=== PATIENT | female | born 1950 | race Caucasian/White ===

== ENCOUNTER 2017-03-02 23:12 | Emergency (ER) | payer OTHER ==
[~2017-03-02] VITALS: Ht 165.1 cm; Wt 81.2 kg
[~2017-03-02 23:12] MED LIST: ANTIVERT25 M1 PO; CIPRO500 MG PO; DURICEF 500 MG CAPSULE PO; FLAGYL500MG PO; GLIPIZIDE5 MG; GLIPIZIDE5 MG PO; GLUCOPHAGE XR500 MG PO; GLUCOTROL5 MG/BOTTL; HYZAAR 100-121 UDTAB PO; INTESTINEX1 CA1 PO; JARDIANCE; LANTUS100 U/ML SQ; LIPITOR20 MG PO; OXYC1TAB9 PO; TOPROL XL25 M1 PO; TOPROL XL25 MG PO; XYLOCAINE-MP10 MG/ML IM; ZANTAC150 MG PO; ZESTRIL5 MG; ZESTRIL5 MG PO
[2017-03-03] MEDS ORDERED: PEPCID40 MG PO (04:44)
[2017-03-03] MEDS ORDERED: ZOFRAN4 MG PO (04:44)
[2017-03-03] MEDS ORDERED: MECLIZINE HCL25 MG PO ×2 (04:45→04:46)
== END 2017-03-03 04:51 ==
LOC: ER 23:12
DX: R42 Dizziness and giddiness (principal)

== ENCOUNTER → 2017-03-27 | Emergency (ER) | payer OTHER ==
[~2017-03-27] VITALS: Ht 167.6 cm; Wt 80.7 kg
[~2017-03-27] MED LIST changes: +MECLIZINE HCL25 MG PO; +PEPCID40 MG PO; +TESSALON PERLE100 M1 PO; +TUSSI PRES-B L120 M1 PO; +ZOFRAN4 MG PO
== END | disposition home or self-care (01) ==
LOC: ER 13:18
DX: B34.9 Viral infection, unspecified (principal); J11.1 Influenza due to unidentified influenza virus with other respiratory manifestations

== ENCOUNTER 2017-05-18 08:00 | Outpatient (CLI) | payer OTHER | END 2017-05-18 08:21 | disposition home or self-care (01) | LOC: NUCLEAR 08:00 | DX: I25.10 Atherosclerotic heart disease of native coronary artery without angina pectoris (principal) ==

== ENCOUNTER 2017-06-13 06:30 | Outpatient (CLI) | payer OTHER | END 2017-06-13 06:48 | disposition home or self-care (01) | LOC: LAB 06:30 | DX: D64.89 Other specified anemias (principal); N39.0 Urinary tract infection, site not specified; R10.84 Generalized abdominal pain; E03.8 Other specified hypothyroidism; R80.8 Other proteinuria; E11.9 Type 2 diabetes mellitus without complications; R73.09 Other abnormal glucose; E78.2 Mixed hyperlipidemia; I11.9 Hypertensive heart disease without heart failure ==

== ENCOUNTER 2017-07-14 16:23 | Emergency (ER) | payer OTHER ==
[~2017-07-14] VITALS: Ht 167.6 cm; Wt 82.6 kg
[2017-07-14] MEDS ORDERED: ASPIR 8181 MG PO (16:37)
== END 2017-07-14 21:10 | disposition home or self-care (01) ==
LOC: ER 16:23 → CPU-OBS 17:35 → ER 21:10
DX: I25.10 Atherosclerotic heart disease of native coronary artery without angina pectoris (principal); R07.89 Other chest pain

== ENCOUNTER 2017-10-14 11:12 | Outpatient (CLI) | payer OTHER ==
[~2017-10-14 11:12] MED LIST changes: +ASPIR 8181 MG PO
[2017-10-21] MEDS ORDERED: METFORMIN HCL1000 MG (12:22)
[2017-10-21] MEDS ORDERED: JARDIANCE25 MG (12:24)
[2017-10-21] MEDS ORDERED: LANTUS SOL100 UNIT/1 (12:25)
[2017-10-21] MEDS ORDERED: PLAVIX75 MG (12:25)
== END 2017-10-14 11:15 | disposition home or self-care (01) ==
LOC: LAB 11:12
DX: I11.9 Hypertensive heart disease without heart failure (principal); E11.9 Type 2 diabetes mellitus without complications; E78.2 Mixed hyperlipidemia; E03.8 Other specified hypothyroidism

== ENCOUNTER → 2017-10-21 | Emergency (ER) | payer OTHER ==
[~2017-10-21] VITALS: Ht 165.1 cm; Wt 80.7 kg
[~2017-10-21] MED LIST changes: +JARDIANCE25 MG; +LANTUS SOL100 UNIT/1; +METFORMIN HCL1000 MG; +PLAVIX75 MG
== END | disposition home or self-care (01) ==
LOC: ER 12:01
DX: K57.30 Diverticulosis of large intestine without perforation or abscess without bleeding (principal); N39.0 Urinary tract infection, site not specified; B96.29 Other Escherichia coli [E. coli] as the cause of diseases classified elsewhere

== ENCOUNTER 2017-11-12 16:36 | Outpatient (CLI) | payer OTHER | END 2017-11-12 16:51 | disposition home or self-care (01) | LOC: LAB 16:36 | DX: N30.00 Acute cystitis without hematuria (principal) ==

== ENCOUNTER 2017-11-18 07:46 | Outpatient (CLI) | payer OTHER | END 2017-11-18 07:50 | disposition home or self-care (01) | LOC: LAB 07:46 | DX: E78.2 Mixed hyperlipidemia (principal); E11.8 Type 2 diabetes mellitus with unspecified complications; I11.9 Hypertensive heart disease without heart failure; D64.89 Other specified anemias; N39.0 Urinary tract infection, site not specified; R10.84 Generalized abdominal pain; E03.8 Other specified hypothyroidism; E78.4 Other hyperlipidemia; R80.8 Other proteinuria; E11.9 Type 2 diabetes mellitus without complications; R73.09 Other abnormal glucose ==

== ENCOUNTER → 2018-03-20 06:47 | Outpatient (CLI) | payer OTHER | END | disposition home or self-care (01) | LOC: LAB 06:47 | DX: E11.65 Type 2 diabetes mellitus with hyperglycemia (principal); E78.00 Pure hypercholesterolemia, unspecified ==

== ENCOUNTER 2018-04-21 07:32 | Outpatient (CLI) | payer OTHER | END 2018-04-21 07:43 | disposition home or self-care (01) | LOC: LAB 07:32 | DX: E03.8 Other specified hypothyroidism (principal); E78.2 Mixed hyperlipidemia; I11.9 Hypertensive heart disease without heart failure; E55.9 Vitamin D deficiency, unspecified; E56.8 Deficiency of other vitamins ==

== ENCOUNTER 2018-06-18 11:59 | Emergency (ER) | payer OTHER ==
[~2018-06-18] VITALS: Ht 162.6 cm; Wt 72.6 kg
== END 2018-06-18 16:08 | disposition home or self-care (01) ==
LOC: ER 11:59
DX: J40 Bronchitis, not specified as acute or chronic (principal); B34.9 Viral infection, unspecified; J11.1 Influenza due to unidentified influenza virus with other respiratory manifestations

== ENCOUNTER 2018-06-27 19:15 | Emergency (ER) | payer OTHER ==
[~2018-06-27] VITALS: Ht 167.6 cm; Wt 84.4 kg
== END 2018-06-27 22:29 | disposition home or self-care (01) ==
LOC: ER 19:15
DX: R42 Dizziness and giddiness (principal); J32.0 Chronic maxillary sinusitis

== ENCOUNTER 2018-08-25 08:18 | Outpatient (CLI) | payer OTHER | END 2018-08-25 10:33 | disposition home or self-care (01) | LOC: LAB 08:18 | DX: D50.8 Other iron deficiency anemias (principal); D03.8 Melanoma in situ of other sites; E78.2 Mixed hyperlipidemia; I11.9 Hypertensive heart disease without heart failure; E56.8 Deficiency of other vitamins; N39.0 Urinary tract infection, site not specified; Z12.11 Encounter for screening for malignant neoplasm of colon; R19.5 Other fecal abnormalities; E55.9 Vitamin D deficiency, unspecified; N19 Unspecified kidney failure; E11.9 Type 2 diabetes mellitus without complications; R80.8 Other proteinuria; C18.8 Malignant neoplasm of overlapping sites of colon; K92.1 Melena; B96.1 Klebsiella pneumoniae [K. pneumoniae] as the cause of diseases classified elsewhere ==

== ENCOUNTER 2018-10-16 16:24 | Outpatient (CLI) | payer OTHER | END 2018-10-16 16:28 | disposition home or self-care (01) | LOC: LAB 16:24 | DX: N39.0 Urinary tract infection, site not specified (principal) ==

== ENCOUNTER → 2018-10-29 16:36 | Outpatient (CLI) | payer OTHER | END | disposition home or self-care (01) | LOC: RAD 16:36 | DX: M25.562 Pain in left knee (principal); M25.561 Pain in right knee ==

== ENCOUNTER 2018-12-19 09:31 | Outpatient (CLI) | payer OTHER | END 2018-12-19 09:36 | disposition home or self-care (01) | LOC: MAMO-SONO 09:31 | DX: Z12.31 Encounter for screening mammogram for malignant neoplasm of breast (principal); Z87.898 Personal history of other specified conditions; C50.919 Malignant neoplasm of unspecified site of unspecified female breast; N63.10 Unspecified lump in the right breast, unspecified quadrant; N63.20 Unspecified lump in the left breast, unspecified quadrant; N64.4 Mastodynia; N60.12 Diffuse cystic mastopathy of left breast; N60.11 Diffuse cystic mastopathy of right breast ==

== ENCOUNTER 2018-12-19 13:23 | Outpatient (CLI) | payer OTHER | END 2018-12-19 14:00 | disposition home or self-care (01) | LOC: NUCLEAR 13:23 | DX: M81.0 Age-related osteoporosis without current pathological fracture (principal) ==

== ENCOUNTER → 2019-01-31 06:54 | Outpatient (CLI) | payer OTHER | END | disposition home or self-care (01) | LOC: LAB 06:54 | DX: N30.00 Acute cystitis without hematuria (principal) ==

== ENCOUNTER 2019-02-09 15:40 | Outpatient (CLI) | payer OTHER | END 2019-02-09 18:00 | disposition home or self-care (01) | LOC: LAB 15:40 | DX: N39.0 Urinary tract infection, site not specified (principal); B99.8 Other infectious disease ==

== ENCOUNTER 2019-02-12 13:38 | Outpatient (CLI) | payer OTHER | END 2019-02-12 14:04 | disposition home or self-care (01) | LOC: LAB 13:38 | DX: N30.00 Acute cystitis without hematuria (principal) ==

== ENCOUNTER 2019-03-27 17:20 | Outpatient (CLI) | payer OTHER | END 2019-03-27 17:34 | disposition home or self-care (01) | LOC: LAB 17:20 | DX: J11.1 Influenza due to unidentified influenza virus with other respiratory manifestations (principal); R53.83 Other fatigue; B96.0 Mycoplasma pneumoniae [M. pneumoniae] as the cause of diseases classified elsewhere ==

== ENCOUNTER 2019-03-29 18:45 | Emergency (ER) | payer OTHER ==
[~2019-03-29] VITALS: Ht 165.1 cm; Wt 68.0 kg
== END 2019-03-29 22:14 | disposition home or self-care (01) ==
LOC: ER 18:45
DX: J45.998 Other asthma (principal)

== ENCOUNTER 2019-04-30 07:37 | Emergency (ER) | payer OTHER ==
[~2019-04-30] VITALS: Ht 165.1 cm; Wt 81.6 kg
== END 2019-04-30 13:53 | disposition home or self-care (01) ==
LOC: ER 07:37
DX: R10.13 Epigastric pain (principal)

== ENCOUNTER 2019-05-04 17:54 | Outpatient (CLI) | payer OTHER | END 2019-05-04 17:58 | disposition home or self-care (01) | LOC: LAB 17:54 | DX: N39.0 Urinary tract infection, site not specified (principal); B96.1 Klebsiella pneumoniae [K. pneumoniae] as the cause of diseases classified elsewhere ==

== ENCOUNTER 2019-07-25 08:06 | Outpatient (CLI) | payer OTHER | END 2019-07-25 08:12 | disposition home or self-care (01) | LOC: LAB 08:06 | PROVIDERS: ATTEND Urology | DX: N30.00 Acute cystitis without hematuria (principal); Z72.89 Other problems related to lifestyle; B96.89 Other specified bacterial agents as the cause of diseases classified elsewhere ==

== ENCOUNTER 2019-08-03 07:58 | Outpatient (CLI) | payer OTHER | END 2019-08-03 08:01 | disposition home or self-care (01) | LOC: LAB 07:58 | PROVIDERS: ATTEND Urology | DX: E11.9 Type 2 diabetes mellitus without complications (principal) ==

== ENCOUNTER 2019-08-05 10:11 | Outpatient (CLI) | payer OTHER | END 2019-08-05 10:13 | disposition home or self-care (01) | LOC: LAB 10:11 | PROVIDERS: ATTEND Urology | DX: E11.9 Type 2 diabetes mellitus without complications (principal) ==

== ENCOUNTER 2019-08-24 16:28 | Outpatient (CLI) | payer OTHER | END 2019-08-24 16:34 | disposition home or self-care (01) | LOC: LAB 16:28 | PROVIDERS: ATTEND Urology | DX: E11.9 Type 2 diabetes mellitus without complications (principal); B96.29 Other Escherichia coli [E. coli] as the cause of diseases classified elsewhere; N30.00 Acute cystitis without hematuria ==

== ENCOUNTER → 2019-09-24 14:17 | Outpatient (CLI) | payer OTHER | END | disposition home or self-care (01) | LOC: CERTIFICAD 14:17 → LAB 14:17 | PROVIDERS: ATTEND General Practice | DX: Z11.1 Encounter for screening for respiratory tuberculosis (principal) ==

== ENCOUNTER 2019-10-02 13:14 | Outpatient (CLI) | payer OTHER ==
[~2019-10-02] VITALS: Ht 165.1 cm; Wt 87.5 kg
== END 2019-10-02 18:48 | disposition home or self-care (01) ==
LOC: OFIC 805 13:14
PROVIDERS: ATTEND Otolaryngology
DX: H90.41 Sensorineural hearing loss, unilateral, right ear, with unrestricted hearing on the contralateral side (principal)

== ENCOUNTER 2019-10-22 11:42 | Outpatient (CLI) | payer OTHER | END 2019-10-22 14:11 | disposition home or self-care (01) | LOC: SONOGRAMA 11:42 | PROVIDERS: ATTEND Obstetrics & Gynecology Gynecology | DX: N20.0 Calculus of kidney (principal) ==

== ENCOUNTER → 2019-11-15 06:54 | Outpatient (CLI) | payer OTHER | END | disposition home or self-care (01) | LOC: LAB 06:54 | PROVIDERS: ATTEND Internal Medicine Endocrinology, Diabetes & Metabolism | DX: E11.65 Type 2 diabetes mellitus with hyperglycemia (principal); E78.89 Other lipoprotein metabolism disorders; E06.3 Autoimmune thyroiditis ==

== ENCOUNTER 2019-11-19 10:00 | Outpatient (CLI) | payer OTHER | END 2019-11-19 15:43 | disposition home or self-care (01) | LOC: PPH VACUNA 10:00 | DX: Z23 Encounter for immunization (principal) | CPT/HCPCS: 90688; G0008 ==

== ENCOUNTER 2019-12-14 08:29 | Outpatient (CLI) | payer OTHER | END 2019-12-14 08:33 | disposition home or self-care (01) | LOC: LAB 08:29 | PROVIDERS: ATTEND Internal Medicine Geriatric Medicine | DX: N39.0 Urinary tract infection, site not specified (principal); B96.29 Other Escherichia coli [E. coli] as the cause of diseases classified elsewhere; D50.8 Other iron deficiency anemias; E03.8 Other specified hypothyroidism; E78.2 Mixed hyperlipidemia; I11.9 Hypertensive heart disease without heart failure; E56.8 Deficiency of other vitamins; Z12.11 Encounter for screening for malignant neoplasm of colon; E55.9 Vitamin D deficiency, unspecified; N19 Unspecified kidney failure; E11.9 Type 2 diabetes mellitus without complications; R80.8 Other proteinuria; C18.0 Malignant neoplasm of cecum; K92.1 Melena ==

== ENCOUNTER 2020-02-11 16:43 | Outpatient (CLI) | payer OTHER | END 2020-02-11 16:44 | disposition home or self-care (01) | LOC: PPH VACUNA 16:43 | DX: Z23 Encounter for immunization (principal) ==

== ENCOUNTER → 2020-02-11 | Outpatient (CLI) | payer OTHER | END | disposition home or self-care (01) | LOC: MAMO-SONO 12:32 | PROVIDERS: ATTEND Internal Medicine Geriatric Medicine | DX: R92.0 Mammographic microcalcification found on diagnostic imaging of breast (principal); N64.59 Other signs and symptoms in breast; Z12.31 Encounter for screening mammogram for malignant neoplasm of breast; C50.919 Malignant neoplasm of unspecified site of unspecified female breast; N64.4 Mastodynia; N60.12 Diffuse cystic mastopathy of left breast; N60.11 Diffuse cystic mastopathy of right breast ==

== ENCOUNTER 2020-03-03 03:00 | Outpatient (CLI) | payer OTHER | END 2020-03-03 03:01 | disposition home or self-care (01) | LOC: PPH VACUNA 03:00 | PROVIDERS: ATTEND Emergency Medicine Pediatric Emergency Medicine | DX: Z23 Encounter for immunization (principal) ==

== ENCOUNTER → 2020-03-14 07:52 | Outpatient (CLI) | payer OTHER | END | disposition home or self-care (01) | LOC: LAB 07:52 | PROVIDERS: ATTEND Internal Medicine Geriatric Medicine | DX: D50.8 Other iron deficiency anemias (principal); E03.8 Other specified hypothyroidism; E78.2 Mixed hyperlipidemia; I11.9 Hypertensive heart disease without heart failure; E56.8 Deficiency of other vitamins; N39.0 Urinary tract infection, site not specified; Z12.11 Encounter for screening for malignant neoplasm of colon; E55.9 Vitamin D deficiency, unspecified; N19 Unspecified kidney failure; E11.9 Type 2 diabetes mellitus without complications; R80.8 Other proteinuria; C18.0 Malignant neoplasm of cecum; K92.1 Melena ==

== ENCOUNTER 2020-04-10 17:41 | Emergency (ER) | payer OTHER ==
[~2020-04-10] VITALS: Ht 165.1 cm; Wt 83.9 kg
[2020-04-10] MEDS ORDERED: MOTION SICKNESS25 M2 PO (19:05)
== END 2020-04-10 19:18 | disposition home or self-care (01) ==
LOC: ER 17:41 → MEDI 04-12 10:35
DX: R42 Dizziness and giddiness (principal)

== ENCOUNTER 2020-04-11 23:38 | Inpatient (IN) | payer OTHER ==
[~2020-04-11] VITALS: Ht 165.1 cm; Wt 86.2 kg
[~2020-04-11 23:38] MED LIST changes: +MOTION SICKNESS25 M2 PO
--- NOTE | 2020-04-12 00:02 | NUR ---
PACIENTE REFIERE 7 EPISODIOS DE VOMITOS Y MAREOS. SE ESTIMAN VITALESY SE COLOCA EN AREA DE OBSERVACION.
--- NOTE | 2020-04-12 00:26 | NUR ---
SE ORIENTA AL PACIENTE SOBRE EL TX. SE EXTRAEN MUESTRAS DE ABDIRAHMAN BAJO MEDIDAS ASEPTICAS SE ROTULAN Y ENVIAN AL LABORATORIO. SE CANALIZA Y ADMINISTRAN MEDICAMENTOS WANDA ORDEN MEDICA. SE ENTREGA FRASCO DE UA Y SE ORIENTA A COLECTAR LA MUESTRA.
--- NOTE | 2020-04-12 08:09 | NUR ---
PACIENTE ALERTA Y ORIENTADA EN JOHN PAUL ELDA ESFERAS, REFIERE MAREOS, PRESENTA BUEN PATRON RESPIRATORIO Y LO DE DOLOR. CANALIZADA EN MANO LT, AREA LO DE S/S DE FLEBITIS E INFILTRACION, RECIBIENDO 0.9% NSS A 150 ML/HR. MR A RAMSEY ADMINISTRA BENADRYL 25 MG IV Y COLECTA MUESTRAS DE ABDIRAHMAN PARA CBC, CMP Y TROPONINA. PENDIENTE EVALUACION DE MEDICINA INTERNA CON DRA REYNA POR VERTIGO.
[2020-04-16] MEDS ORDERED: BENADRYL ALLERG25 MG PO (13:40)
[2020-04-16] MEDS ORDERED: METFORMIN HCL1000 MG PO (13:40)
[2020-04-16] MEDS ORDERED: LIPITOR20 MG PO (13:40)
[2020-04-16] MEDS ORDERED: ONDANSETRON ODT4 MG PO (13:40)
[2020-04-16] MEDS ORDERED: TRANSDERM-SCOP1 EACH TD (13:40)
[2020-04-16] MEDS ORDERED: MOTION SICKNESS25 M2 PO (13:40)
[2020-04-16] MEDS ORDERED: TRULICITY1.5 MG/0.5 SUBCUTANEO (13:40)
[2020-04-16] MEDS ORDERED: ZESTRIL5 MG PO (13:40)
[2020-04-16] MEDS ORDERED: TOPROL XL25 MG PO (13:40)
== END 2020-04-16 15:19 | disposition home or self-care (01) | DRG 149 ==
LOC: ER 23:38 → EMR PED 23:39 → ER 23:39 → MEDI 04-12 11:12 → SURH 04-12 11:12
PROVIDERS: ADMIT Internal Medicine Geriatric Medicine; ATTEND Internal Medicine Geriatric Medicine
PROC: B24BYZZ Ultrasonography of Heart with Aorta using Other Contrast (ICD-10-PCS; principal; 2020-04-13)
PROC: BW38Y0Z Magnetic Resonance Imaging (MRI) of Head using Other Contrast, Unenhanced and Enhanced (ICD-10-PCS; 2020-04-13)
DX: H81.4 Vertigo of central origin (principal); E86.0 Dehydration; R11.2 Nausea with vomiting, unspecified; E11.9 Type 2 diabetes mellitus without complications; I25.10 Atherosclerotic heart disease of native coronary artery without angina pectoris; I11.9 Hypertensive heart disease without heart failure; Z20.822 Contact with and (suspected) exposure to COVID-19
CPT/HCPCS: 70545

== ENCOUNTER 2020-04-29 12:31 | Emergency (ER) | payer OTHER ==
[~2020-04-29] VITALS: Ht 160 cm; Wt 84.8 kg
[~2020-04-29 12:31] MED LIST changes: +BENADRYL ALLERG25 MG PO; +METFORMIN HCL1000 MG PO; +ONDANSETRON ODT4 MG PO; +TRANSDERM-SCOP1 EACH TD; +TRULICITY1.5 MG/0.5 SUBCUTANEO
[2020-04-29] MEDS ORDERED: MECLIZINE HCL25 MG (13:06)
[2020-04-29] MEDS ORDERED: MACROBID 100 M100 MG PO (16:29)
== END 2020-04-29 16:42 | disposition home or self-care (01) ==
LOC: ER 12:31
DX: R42 Dizziness and giddiness (principal); N39.0 Urinary tract infection, site not specified; B96.29 Other Escherichia coli [E. coli] as the cause of diseases classified elsewhere

== ENCOUNTER 2020-06-13 08:02 | Outpatient (CLI) | payer OTHER ==
[~2020-06-13 08:02] MED LIST changes: +MACROBID 100 M100 MG PO; +MECLIZINE HCL25 MG
== END 2020-06-13 08:19 | disposition home or self-care (01) ==
LOC: LAB 08:02
PROVIDERS: ATTEND Internal Medicine Geriatric Medicine
DX: D50.8 Other iron deficiency anemias (principal); E03.8 Other specified hypothyroidism; E78.2 Mixed hyperlipidemia; I11.9 Hypertensive heart disease without heart failure; E56.8 Deficiency of other vitamins; N39.0 Urinary tract infection, site not specified; Z12.11 Encounter for screening for malignant neoplasm of colon; E55.9 Vitamin D deficiency, unspecified; N19 Unspecified kidney failure; E11.9 Type 2 diabetes mellitus without complications; R80.8 Other proteinuria; C18.0 Malignant neoplasm of cecum; K92.1 Melena

== ENCOUNTER → 2020-09-05 08:03 | Outpatient (CLI) | payer OTHER ==
[~2020-09-05 08:03] MED LIST changes: +CRUTCHES; +DICLOFENAC POTA50 MG PO; +ULTRAM50 MG PO
== END | disposition home or self-care (01) ==
LOC: LAB 08:03
PROVIDERS: ATTEND Internal Medicine Geriatric Medicine
DX: D50.8 Other iron deficiency anemias (principal); E03.8 Other specified hypothyroidism; E78.2 Mixed hyperlipidemia; I11.9 Hypertensive heart disease without heart failure; E56.8 Deficiency of other vitamins; N39.0 Urinary tract infection, site not specified; Z12.11 Encounter for screening for malignant neoplasm of colon; E55.9 Vitamin D deficiency, unspecified; N19 Unspecified kidney failure; E11.9 Type 2 diabetes mellitus without complications; R80.8 Other proteinuria; C18.0 Malignant neoplasm of cecum; K92.1 Melena

== ENCOUNTER 2020-10-01 12:55 | Emergency (ER) | payer OTHER ==
[~2020-10-01] VITALS: Ht 165.1 cm; Wt 83.9 kg
[~2020-10-01 12:55] MED LIST changes: -CRUTCHES; -DICLOFENAC POTA50 MG PO; -ULTRAM50 MG PO
[2020-10-01] MEDS ORDERED: CRUTCHES (15:12)
[2020-10-01] MEDS ORDERED: ULTRAM50 MG PO (15:12)
[2020-10-01] MEDS ORDERED: DICLOFENAC POTA50 MG PO (15:12)
== END 2020-10-01 15:23 | disposition home or self-care (01) ==
LOC: ER 12:55
DX: S93.492A Sprain of other ligament of left ankle, initial encounter (principal); R60.0 Localized edema; W01.0XXA Fall on same level from slipping, tripping and stumbling without subsequent striking against object, initial encounter; Y93.01 Activity, walking, marching and hiking; Y92.018 Other place in single-family (private) house as the place of occurrence of the external cause; Y99.8 Other external cause status

== ENCOUNTER 2020-11-07 04:18 | Outpatient (CLI) | payer OTHER ==
[~2020-11-07 04:18] MED LIST changes: +CRUTCHES; +DICLOFENAC POTA50 MG PO; +ULTRAM50 MG PO
== END 2020-11-07 15:00 | disposition home or self-care (01) ==
LOC: LAB 04:18
PROVIDERS: ATTEND Internal Medicine Geriatric Medicine
DX: E03.8 Other specified hypothyroidism (principal); D50.8 Other iron deficiency anemias; E78.2 Mixed hyperlipidemia; I11.9 Hypertensive heart disease without heart failure; E56.8 Deficiency of other vitamins; N39.0 Urinary tract infection, site not specified; Z12.11 Encounter for screening for malignant neoplasm of colon; R19.5 Other fecal abnormalities; E55.9 Vitamin D deficiency, unspecified; E11.9 Type 2 diabetes mellitus without complications

== ENCOUNTER 2020-11-23 08:00 | Outpatient (CLI) | payer OTHER | END 2020-11-23 08:30 | disposition home or self-care (01) | LOC: PPH VACUNA 08:00 | PROVIDERS: ATTEND Emergency Medicine Pediatric Emergency Medicine | DX: Z23 Encounter for immunization (principal) ==

== ENCOUNTER → 2020-12-21 07:33 | Outpatient (CLI) | payer OTHER | END | disposition home or self-care (01) | LOC: LAB 07:33 | PROVIDERS: ATTEND Internal Medicine | DX: N39.0 Urinary tract infection, site not specified (principal); B96.29 Other Escherichia coli [E. coli] as the cause of diseases classified elsewhere; I10 Essential (primary) hypertension; E11.9 Type 2 diabetes mellitus without complications; E55.9 Vitamin D deficiency, unspecified; N18.2 Chronic kidney disease, stage 2 (mild); R80.8 Other proteinuria ==

== ENCOUNTER 2021-02-21 03:43 | Emergency (ER) | payer OTHER ==
[~2021-02-21] VITALS: Ht 165.1 cm; Wt 85.7 kg
== END 2021-02-21 05:43 | disposition home or self-care (01) ==
LOC: ER 03:43
DX: R10.11 Right upper quadrant pain (principal)

== ENCOUNTER 2021-02-24 08:01 | Outpatient (CLI) | payer OTHER | END 2021-02-24 08:12 | disposition home or self-care (01) | LOC: SONOGRAMA 08:01 | PROVIDERS: ATTEND General Practice | DX: R10.11 Right upper quadrant pain (principal) ==

== ENCOUNTER 2021-03-06 08:13 | Outpatient (CLI) | payer OTHER | END 2021-03-06 15:00 | disposition home or self-care (01) | LOC: LAB 08:13 | DX: E78.89 Other lipoprotein metabolism disorders (principal); E11.65 Type 2 diabetes mellitus with hyperglycemia ==

== ENCOUNTER 2021-04-09 09:16 | Outpatient (CLI) | payer OTHER ==
[~2021-04-09 09:16] MED LIST changes: +GLUCOPHAGE 1000; +INTESTINEX680 MG PO; +LEVAQUIN500 MG; +PRINIVIL5 MG
[2021-04-22] MEDS ORDERED: ZESTRIL5 MG PO (11:14)
[2021-04-22] MEDS ORDERED: METFORMIN HCL1000 MG (11:14)
[2021-04-23] MEDS ORDERED: METFORMIN HCL1000 M3 (11:01)
[2021-04-23] MEDS ORDERED: FAMOTIDINE20 MG (11:01)
[2021-04-23] MEDS ORDERED: TRULICITY1.5 MG/0.5 (11:02)
[2021-04-23] MEDS ORDERED: METOPROLOL SUCC25 MG (11:02)
[2021-04-23] MEDS ORDERED: ATORVASTATIN CA20 MG (11:02)
[2021-04-23] MEDS ORDERED: VITAMIN C500 M1 (11:02)
[2021-04-23] MEDS ORDERED: VITAMIN D350 MC3 (11:02)
[2021-04-23] MEDS ORDERED: ST. JOSEPH ASPI81 M2 (11:02)
[2021-04-27] MEDS ORDERED: INTESTINEX680 M1 PO (09:23)
[2021-04-27] MEDS ORDERED: AMOX-CLAV 875-1 EACH PO (09:23)
== END 2021-04-09 09:40 | disposition home or self-care (01) ==
LOC: ASH CLINIC 09:16
PROVIDERS: ATTEND General Practice
DX: U07.1 COVID-19 (principal); Z23 Encounter for immunization

== ENCOUNTER 2021-11-17 08:00 | Outpatient (CLI) | payer OTHER ==
[~2021-11-17 08:00] MED LIST changes: +AMOX-CLAV 875-1 EACH PO; +ATORVASTATIN CA20 MG; +FAMOTIDINE20 MG; +INTESTINEX680 M1 PO; +METFORMIN HCL1000 M3; +METOPROLOL SUCC25 MG; +ST. JOSEPH ASPI81 M2; +TRULICITY1.5 MG/0.5; +VITAMIN C500 M1; +VITAMIN D350 MC3
== END 2021-11-17 08:05 | disposition home or self-care (01) ==
LOC: PPH VACUNA 08:00
PROVIDERS: ATTEND Emergency Medicine Pediatric Emergency Medicine
DX: Z23 Encounter for immunization (principal)
CPT/HCPCS: 90686; G0008

== ENCOUNTER 2021-12-21 14:39 | Outpatient (CLI) | payer OTHER | END 2021-12-21 14:49 | disposition home or self-care (01) | LOC: RAD 14:39 | DX: M99.01 Segmental and somatic dysfunction of cervical region (principal); M99.02 Segmental and somatic dysfunction of thoracic region; M99.03 Segmental and somatic dysfunction of lumbar region; M99.05 Segmental and somatic dysfunction of pelvic region ==

== ENCOUNTER → 2022-02-05 07:46 | Outpatient (CLI) | payer OTHER | END | disposition home or self-care (01) | LOC: LAB 07:46 | PROVIDERS: ATTEND Internal Medicine | DX: N39.0 Urinary tract infection, site not specified (principal); D64.9 Anemia, unspecified; R10.9 Unspecified abdominal pain; E03.9 Hypothyroidism, unspecified; E78.5 Hyperlipidemia, unspecified; E11.9 Type 2 diabetes mellitus without complications; I10 Essential (primary) hypertension ==

== ENCOUNTER → 2022-04-01 09:10 | Outpatient (CLI) | payer OTHER | END | disposition home or self-care (01) | LOC: LAB 09:10 | PROVIDERS: ATTEND Internal Medicine Endocrinology, Diabetes & Metabolism | DX: E11.65 Type 2 diabetes mellitus with hyperglycemia (principal); E78.00 Pure hypercholesterolemia, unspecified ==

== ENCOUNTER 2022-04-30 08:21 | Outpatient (CLI) | payer OTHER | END 2022-04-30 08:22 | disposition home or self-care (01) | LOC: LAB 08:21 | PROVIDERS: ATTEND Internal Medicine | DX: D51.9 Vitamin B12 deficiency anemia, unspecified (principal); K57.90 Diverticulosis of intestine, part unspecified, without perforation or abscess without bleeding; E66.9 Obesity, unspecified; N18.2 Chronic kidney disease, stage 2 (mild); E11.9 Type 2 diabetes mellitus without complications; N39.0 Urinary tract infection, site not specified; E55.9 Vitamin D deficiency, unspecified; E78.9 Disorder of lipoprotein metabolism, unspecified; I10 Essential (primary) hypertension; I25.10 Atherosclerotic heart disease of native coronary artery without angina pectoris; I11.9 Hypertensive heart disease without heart failure; N39.41 Urge incontinence; M65.30 Trigger finger, unspecified finger ==

== ENCOUNTER 2022-06-20 19:29 | Emergency (ER) | payer OTHER ==
[~2022-06-20] VITALS: Ht 165.1 cm; Wt 77.1 kg
== END 2022-06-20 21:09 | disposition home or self-care (01) ==
LOC: ER 19:29
DX: M54.50 Low back pain, unspecified (principal); E11.9 Type 2 diabetes mellitus without complications; Z79.4 Long term (current) use of insulin; I10 Essential (primary) hypertension; Z88.8 Allergy status to other drugs, medicaments and biological substances

== ENCOUNTER 2022-06-22 17:03 | Emergency (ER) | payer OTHER ==
[~2022-06-22] VITALS: Ht 160 cm; Wt 61.2 kg
== END 2022-06-22 22:57 | disposition home or self-care (01) ==
LOC: ER 17:03
DX: M54.31 Sciatica, right side (principal); E11.9 Type 2 diabetes mellitus without complications; Z79.4 Long term (current) use of insulin; Z79.84 Long term (current) use of oral hypoglycemic drugs; I10 Essential (primary) hypertension; Z88.8 Allergy status to other drugs, medicaments and biological substances

== ENCOUNTER 2022-06-26 13:57 | Inpatient (IN) | payer OTHER ==
[~2022-06-26] VITALS: Ht 152.4 cm; Wt 83.9 kg
[2022-06-27] MEDS ORDERED: DULOXETINE HCL30 MG (15:40)
[2022-06-27] MEDS ORDERED: SYNJARDY XR 121 EACH (15:44)
[2022-06-27] MEDS ORDERED: GABAPENTIN300 M2 (15:44)
[2022-06-27] MEDS ORDERED: REFRESH OPTIVE10 ML (15:44)
[2022-06-27] MEDS ORDERED: ZANAFLEX2 MG (15:44)
[2022-06-29] MEDS ORDERED: DOCUSATE SODIU100 MG PO (07:49)
[2022-06-29] MEDS ORDERED: HUMALOG100 UNIT/1 SUBCUTANEO (07:53)
[2022-06-29] MEDS ORDERED: LIDODERM1 EACH TOP (07:53)
[2022-06-29] MEDS ORDERED: PROTONIX40 MG PO (07:55)
[2022-06-29] MEDS ORDERED: DEXAMETHASONE4 MG PO (07:55)
[2022-06-29] MEDS ORDERED: PEPCID AC20 MG PO (07:56)
[2022-06-29] MEDS ORDERED: TRAMADOL HCL50 MG PO (08:01)
== END 2022-06-29 09:36 | disposition home or self-care (01) | DRG 552 ==
LOC: ER 13:57 → MEDJ 06-27 09:24
PROVIDERS: ADMIT Internal Medicine; ATTEND Internal Medicine
DX: M51.16 Intervertebral disc disorders with radiculopathy, lumbar region (principal); M48.061 Spinal stenosis, lumbar region without neurogenic claudication; I11.9 Hypertensive heart disease without heart failure; E11.9 Type 2 diabetes mellitus without complications; Z79.4 Long term (current) use of insulin

== ENCOUNTER 2022-12-02 08:22 | Outpatient (CLI) | payer OTHER ==
[~2022-12-02 08:22] MED LIST changes: +DEXAMETHASONE4 MG PO; +DOCUSATE SODIU100 MG PO; +DULOXETINE HCL30 MG; +GABAPENTIN300 M2; +HUMALOG100 UNIT/1 SUBCUTANEO; +LIDODERM1 EACH TOP; +PEPCID AC20 MG PO; +PROTONIX40 MG PO; +REFRESH OPTIVE10 ML; +SYNJARDY XR 121 EACH; +TRAMADOL HCL50 MG PO; +ZANAFLEX2 MG
[2022-12-02 09:29] LABS: PH,URINE 5.5 (5.0-8.0); URINE APPEARANCE Clear; URINE BILIRRUBIN Negative (NEGATIVE); URINE BLOOD Small; URINE COLOR Yellow; URINE LEUKOCYTE Negative; URINE NITRATE Negative; URINE PROTEIN Negative (NEGATIVE); URINE UROBILINOGEN 0.2 E.U./dl
[2022-12-02 09:32] LABS: URINE BACTERIA 16.3 uL (0.0-1933); URINE EPITHELIAL CELLS 4.4 uL (0.0-38.8); URINE RBC 12.7 uL (0.0-20.8); URINE WBC 34.9 uL (0.0-23.2)
[2022-12-02 09:37] LABS: URINE GLUCOSE >=1000 MG/DL (NEGATIVE)
[2022-12-02 09:44] LABS: HEMATOCRIT 41.1 % (36.0-45.00); HEMOGLOBIN 13.8 g/dL (12.0-15.00); MEAN CELL VOLUME 89.9 fL (80.00-100.00); MEAN CORPUSCULAR HEMOGLOBIN 30.1 pg (27.00-32.0); MEAN CORPUSCULAR HGB CONC 33.4 g/dl (32.0-36.0); PLATELET COUNT 340 K/uL (150-450); RED BLOOD COUNT 4.58 M/uL (4.00-6.00); RED CELL DISTRIBUTION WIDTH 14.3 % (11.5-14.5)
[2022-12-02 10:07] LABS: ALBUMIN 3.9 gm/dL (3.4-5.0); BILIRUBIN TOTAL 0.39 mg/dL (0.3-1.2); CALCIUM 9.1 mg/dL (8.5-10.1); CREATININE SERUM 1.04 mg/dL (0.55-1.02); GFR 51.8; GLOBULINA 3.2 G/DL (2.4-3.5); POTASSIUM 4.28 mEq/L (3.5-5.1); TOTAL PROTEIN 7.1 gm/dL (6.4-8.2)
[2022-12-02 10:16] LABS: CHOL HDL RATIO 2.5 (0-5.0); CHOLESTEROL 133 mg/dL (0-200); FREE TRIODOTIRONINE 2.36 pg/ml (2.18-3.98); HDL 54 mg/dl (40-60); LDL 57 mg/dl (0-130); T4 TOTAL 8.91 UG/DL (4.8-13.9); TRIGLYCERIDES 110 mg/dL (0-150); VLDL 22 (0-39)
[2022-12-02 10:20] LABS: C-REACTIVE PROTEIN < 0.29 MG/DL (0.00-0.29)
[2022-12-03 09:11] LABS: VITAMIN D 1 25 28.5 pg/mL (24.8-81.5)
== END 2022-12-02 08:31 | disposition home or self-care (01) ==
LOC: LAB 08:22
PROVIDERS: ATTEND Internal Medicine
DX: M54.50 Low back pain, unspecified (principal); D51.9 Vitamin B12 deficiency anemia, unspecified; K57.90 Diverticulosis of intestine, part unspecified, without perforation or abscess without bleeding; E66.9 Obesity, unspecified; N18.2 Chronic kidney disease, stage 2 (mild); E11.9 Type 2 diabetes mellitus without complications; N39.0 Urinary tract infection, site not specified; E55.9 Vitamin D deficiency, unspecified; E78.9 Disorder of lipoprotein metabolism, unspecified; I25.10 Atherosclerotic heart disease of native coronary artery without angina pectoris; I11.9 Hypertensive heart disease without heart failure; N39.41 Urge incontinence; E03.9 Hypothyroidism, unspecified

== ENCOUNTER 2022-12-02 09:15 | Outpatient (CLI) | payer OTHER | END 2022-12-02 09:55 | disposition home or self-care (01) | LOC: MAMO-SONO 09:15 | PROVIDERS: ATTEND Internal Medicine | DX: Z12.31 Encounter for screening mammogram for malignant neoplasm of breast (principal); Z12.39 Encounter for other screening for malignant neoplasm of breast; E04.8 Other specified nontoxic goiter ==

== ENCOUNTER 2022-12-14 02:45 | Outpatient (CLI) | payer OTHER | END 2022-12-14 02:55 | disposition home or self-care (01) | LOC: PPH VACUNA 02:45 | PROVIDERS: ATTEND Emergency Medicine Pediatric Emergency Medicine | DX: Z23 Encounter for immunization (principal) | CPT/HCPCS: 90686; G0008 ==

== ENCOUNTER 2023-02-21 09:03 | Outpatient (CLI) | payer OTHER | END 2023-02-21 09:10 | disposition home or self-care (01) | LOC: RAD 09:03 | DX: M43.26 Fusion of spine, lumbar region (principal); M54.10 Radiculopathy, site unspecified | CPT/HCPCS: 72148 ==

== ENCOUNTER 2023-02-22 13:21 | Emergency (ER) | payer OTHER ==
[~2023-02-22] VITALS: Ht 165.1 cm; Wt 81.6 kg
[2023-02-22 15:12] LABS: HEMOGLOBIN 13.1 g/dL (12.0-15.00); MEAN CELL VOLUME 90.9 fL (80.00-100.00); MEAN CORPUSCULAR HEMOGLOBIN 30.6 pg (27.00-32.0); MEAN CORPUSCULAR HGB CONC 33.6 g/dl (32.0-36.0); PLATELET COUNT 344 K/uL (150-450); RED BLOOD COUNT 4.29 M/uL (4.00-6.00)
[2023-02-22 15:42] LABS: CALCIUM 9.2 mg/dL (8.5-10.1); CREATININE SERUM 0.99 mg/dL (0.55-1.02); GFR 54.83; POTASSIUM 4.54 mEq/L (3.5-5.1)
== END 2023-02-22 18:26 | disposition home or self-care (01) ==
LOC: ER 13:22
PROVIDERS: General Practice
DX: M48.061 Spinal stenosis, lumbar region without neurogenic claudication (principal); M54.9 Dorsalgia, unspecified; Z88.8 Allergy status to other drugs, medicaments and biological substances
CPT/HCPCS: 36415; 96372; 99284; J1885; J2405; J3301

== ENCOUNTER 2023-09-19 16:37 | Outpatient (CLI) | payer OTHER ==
[~2023-09-19 16:37] MED LIST changes: +GLUCOPHAGE XR500 MG; +GLUCOTROL10 MG; +HYZAAR 100-121 UDTAB; +LIPITOR20 MG; +TOPROL XL25 MG
[2023-09-19 16:57] LABS: URINE APPEARANCE Clear; URINE BILIRRUBIN Negative (NEGATIVE); URINE BLOOD Small; URINE COLOR Yellow; URINE LEUKOCYTE Negative; URINE NITRATE Negative; URINE PROTEIN Negative (NEGATIVE); URINE UROBILINOGEN 0.2 E.U./dl
[2023-09-19 16:58] LABS: URINE EPITHELIAL CELLS 4.6 uL (0.0-38.8); URINE RBC 7.1 uL (0.0-20.8); URINE WBC 3.6 uL (0.0-23.2)
[2023-09-19 17:05] LABS: URINE BACTERIA 3.7 uL (0.0-1933); URINE GLUCOSE 250 MG/DL (NEGATIVE)
== END 2023-09-19 16:47 | disposition home or self-care (01) ==
LOC: LAB 16:37
DX: N39.0 Urinary tract infection, site not specified (principal)

== ENCOUNTER 2023-11-13 07:17 | Outpatient (CLI) | payer OTHER ==
[2023-11-13 07:49] LABS: HEMATOCRIT 37.2 % (36.0-45.00); HEMOGLOBIN 12.5 g/dL (12.0-15.00); MEAN CELL VOLUME 88.2 fL (80.00-100.00); MEAN CORPUSCULAR HEMOGLOBIN 29.7 pg (27.00-32.0); MEAN CORPUSCULAR HGB CONC 33.7 g/dl (32.0-36.0); PLATELET COUNT 371 K/uL (150-450); RED BLOOD COUNT 4.22 M/uL (4.00-6.00); RED CELL DISTRIBUTION WIDTH 15.2 % (11.5-14.5)
[2023-11-13 08:10] LABS: PH,URINE 5.5 (5.0-8.0); URINE APPEARANCE Clear; URINE BILIRRUBIN Negative (NEGATIVE); URINE BLOOD NHT; URINE COLOR Yellow; URINE KETONE Negative (NEGATIVE); URINE LEUKOCYTE Negative; URINE NITRATE Negative; URINE PROTEIN Negative (NEGATIVE); URINE UROBILINOGEN 0.2 E.U./dl
[2023-11-13 08:13] LABS: URINE BACTERIA 45.3 uL (0.0-1933); URINE EPITHELIAL CELLS 22.2 uL (0.0-38.8); URINE RBC 12.5 uL (0.0-20.8); URINE WBC 30.9 uL (0.0-23.2)
[2023-11-13 08:34] LABS: URINE CAST 0.15 uL (0.0-1.40); URINE GLUCOSE >=1000 MG/DL (NEGATIVE)
[2023-11-13 09:25] LABS: ALBUMIN 3.8 gm/dL (3.4-5.0); ALKALINE PHOSPHATASE 75 U/L (50-136); ALT/SGPT 20 U/L (12-78); ANION GAP 14 (10.0-20.0); AST/SGOT 10 U/L (15-37); BILIRUBIN TOTAL 0.28 mg/dL (0.3-1.2); BLOOD UREA NITROGEN 17 mg/dL (7-18); BUN CREA RATIO 17 (7.0-25.0); CALCIUM 9.1 mg/dL (8.5-10.1); CARBON DIOXIDE 29 mEq/L (21-32); CHLORIDE 107 mmol/L (98-107); CHOL HDL RATIO 2.2 (0-5.0); CHOLESTEROL 119 mg/dL (0-200); CREATININE SERUM 0.98 mg/dL (0.55-1.02); FREE TRIODOTIRONINE 2.03 pg/ml (2.18-3.98); GFR 55.32; GLOBULINA 3.4 G/DL (2.4-3.5); GLUCOSE FASTING 141 mg/dL (65-100); HDL 53 mg/dl (40-60); LDL 50 mg/dl (0-130); OSMOLALITY SERUM 293 MOSM/KG (275-295); POTASSIUM 4.76 mEq/L (3.5-5.1); SODIUM 145 mmol/L (136-145); T4 TOTAL 8.44 UG/DL (4.8-13.9); TOTAL PROTEIN 7.2 gm/dL (6.4-8.2); TRIGLYCERIDES 82 mg/dL (0-150); VLDL 16 (0-39)
[2023-11-13 09:28] LABS: C-REACTIVE PROTEIN < 0.29 MG/DL (0.00-0.29)
== END 2023-11-13 07:19 | disposition home or self-care (01) ==
LOC: LAB 07:17
PROVIDERS: ATTEND Internal Medicine
DX: E78.9 Disorder of lipoprotein metabolism, unspecified (principal); E11.9 Type 2 diabetes mellitus without complications; I10 Essential (primary) hypertension; I25.10 Atherosclerotic heart disease of native coronary artery without angina pectoris; K57.90 Diverticulosis of intestine, part unspecified, without perforation or abscess without bleeding; N18.2 Chronic kidney disease, stage 2 (mild); E03.9 Hypothyroidism, unspecified; N39.0 Urinary tract infection, site not specified; M54.50 Low back pain, unspecified; D51.9 Vitamin B12 deficiency anemia, unspecified; E66.9 Obesity, unspecified; E55.9 Vitamin D deficiency, unspecified; I11.9 Hypertensive heart disease without heart failure; N39.41 Urge incontinence; E04.9 Nontoxic goiter, unspecified; E04.1 Nontoxic single thyroid nodule

== ENCOUNTER → 2023-12-11 | Outpatient (CLI) | payer OTHER | END | disposition home or self-care (01) | LOC: RAD 09:31 | PROVIDERS: ATTEND Internal Medicine | DX: R05.9 Cough, unspecified (principal) ==

== ENCOUNTER 2024-03-05 17:50 | Inpatient (IN) | payer OTHER ==
[~2024-03-05] VITALS: Ht 165.1 cm; Wt 154.7 kg
[2024-03-05 18:58] LABS: HEMATOCRIT 39.8 % (36.0-45.00); HEMOGLOBIN 13.4 g/dL (12.0-15.00); MEAN CORPUSCULAR HEMOGLOBIN 29.3 pg (27.00-32.0); MEAN CORPUSCULAR HGB CONC 33.7 g/dl (32.0-36.0); PLATELET COUNT 385 K/uL (150-450); RED BLOOD COUNT 4.58 M/uL (4.00-6.00); RED CELL DISTRIBUTION WIDTH 15.1 % (11.5-14.5)
[2024-03-05 19:03] LABS: PH,URINE 5.5 (5.0-8.0); URINE APPEARANCE Turbid; URINE BILIRRUBIN Negative (NEGATIVE); URINE BLOOD Moderate; URINE COLOR Yellow; URINE KETONE Trace (NEGATIVE); URINE LEUKOCYTE Moderate; URINE NITRATE Positive; URINE UROBILINOGEN 0.2 E.U./dl
[2024-03-05 19:04] LABS: URINE EPITHELIAL CELLS 14.6 uL (0.0-38.8); URINE RBC 98.7 uL (0.0-20.8)
[2024-03-05 19:22] LABS: URINE BACTERIA > 9821.5 uL (0.0-1933); URINE CAST 0.24 uL (0.0-1.40); URINE GLUCOSE >=1000 MG/DL (NEGATIVE); URINE PROTEIN 100 (NEGATIVE); URINE WBC > 5548.3 uL (0.0-23.2)
[2024-03-05 19:26] LABS: ALBUMIN 3.8 gm/dL (3.4-5.0); BILIRUBIN TOTAL 0.59 mg/dL (0.3-1.2); CALCIUM 9.5 mg/dL (8.5-10.1); CREATININE SERUM 1.08 mg/dL (0.55-1.02); GFR 49.46; GLOBULINA 3.9 G/DL (2.4-3.5); POTASSIUM 5.21 mEq/L (3.5-5.1); TOTAL PROTEIN 7.7 gm/dL (6.4-8.2)
[2024-03-05] MEDS ORDERED: 0.9 % SODIUM CHLORIDE 1,000 ML IV SCH (22:00)
[2024-03-05] MEDS ORDERED: INSULIN GLARGINE,HUM.REC.ANLOG 1,000 UNITS/10 ML UNITS SUBCUTANEO SCH (22:03)
[2024-03-05] MEDS ORDERED: MEROPENEM 500 MG/VIAL VIAL IV SCH (22:03)
[2024-03-05] MEDS ORDERED: SODIUM POLYSTYRENE SULFONATE 15 G/4 TSP TSP PO ONE (22:15)
[2024-03-05] MEDS ORDERED: ACETAMINOPHEN 500 MG GEL..CAP PO PRN (22:15)
[2024-03-06 00:26] VITALS: BP 126/56; O2SAT 99
[2024-03-06] MEDS ORDERED: INSULIN LISPRO 1,000 UNIT/10 ML UNITS SUBCUTANEO PRN (00:45)
[2024-03-06] MEDS ORDERED: DEXTROSE 50 % IN WATER 0.5 G/ML DISP.SYRIN IV PRN (00:45)
[2024-03-06 02:50] VITALS: BP 99/61; O2SAT 97
[2024-03-06] MEDS ORDERED: ENOXAPARIN SODIUM 40 MG/0.4 ML SYRINGE SUBCUTANEO SCH (09:00)
[2024-03-06] MEDS ORDERED: LISINOPRIL 2.5 MG TABLET PO SCH (09:00)
[2024-03-06] MEDS ORDERED: ATORVASTATIN CALCIUM 20 MG TABLET PO SCH (09:00)
[2024-03-06] MEDS ORDERED: FAMOTIDINE/PF 20 MG in 0.9 % SODIUM CHLORIDE 8 ML IV PUSH SCH (09:00)
[2024-03-06] MEDS ORDERED: METOPROLOL SUCCINATE 25 MG TAB.SR.24H PO SCH (09:00)
[2024-03-06 09:15] VITALS: BP 105/65; O2SAT 99
[2024-03-06 09:18] LABS: INR 1.01; PARTIAL THROMBOPLASTIN TIME 24.7 SECONDS (22.0-34.0)
[2024-03-06 09:22] LABS: CALCIUM 9.2 mg/dL (8.5-10.1); CREATININE SERUM 0.88 mg/dL (0.55-1.02); GFR 62.64; POTASSIUM 5.14 mEq/L (3.5-5.1)
[2024-03-06] MEDS ORDERED: SODIUM POLYSTYRENE SULFONATE 30G/8 TSP PO NR (10:30)
[2024-03-06] MEDS ORDERED: MEROPENEM 500 MG/VIAL VIAL IV SCH (12:00)
[2024-03-06] MEDS ORDERED: LACTOBACILLUS ACIDOPHILUS 1 CAP CAP PO SCH (17:00)
[2024-03-06 19:12] VITALS: BP 126/60
[2024-03-07 02:21] VITALS: BP 145/76
[2024-03-07 07:41] LABS: HEMATOCRIT 36.3 % (36.0-45.00); HEMOGLOBIN 12.4 g/dL (12.0-15.00); MEAN CELL VOLUME 86.7 fL (80.00-100.00); MEAN CORPUSCULAR HEMOGLOBIN 29.6 pg (27.00-32.0); MEAN CORPUSCULAR HGB CONC 34.2 g/dl (32.0-36.0); PLATELET COUNT 340 K/uL (150-450); RED BLOOD COUNT 4.19 M/uL (4.00-6.00); RED CELL DISTRIBUTION WIDTH 15.2 % (11.5-14.5)
[2024-03-07 08:00] LABS: PH,URINE 6.5 (5.0-8.0); URINE APPEARANCE Clear; URINE BILIRRUBIN Negative (NEGATIVE); URINE BLOOD Negative; URINE COLOR Yellow; URINE KETONE Negative (NEGATIVE); URINE LEUKOCYTE Negative; URINE NITRATE Negative; URINE PROTEIN Negative (NEGATIVE); URINE UROBILINOGEN 0.2 E.U./dl
[2024-03-07 08:03] LABS: URINE BACTERIA 23.2 uL (0.0-1933); URINE EPITHELIAL CELLS 6.4 uL (0.0-38.8); URINE RBC 10.7 uL (0.0-20.8); URINE WBC 216.4 uL (0.0-23.2)
[2024-03-07 08:12] LABS: URINE CAST 0.14 uL (0.0-1.40); URINE GLUCOSE >=1000 MG/DL (NEGATIVE)
[2024-03-07 08:22] LABS: ALBUMIN 3.3 gm/dL (3.4-5.0); BILIRUBIN TOTAL 0.35 mg/dL (0.3-1.2); CALCIUM 8.6 mg/dL (8.5-10.1); CREATININE SERUM 0.85 mg/dL (0.55-1.02); GFR 65.2; GLOBULINA 3.1 G/DL (2.4-3.5); MAGNESIUM 1.9 mg/dL (1.8-2.4); POTASSIUM 4.86 mEq/L (3.5-5.1); TOTAL PROTEIN 6.4 gm/dL (6.4-8.2)
[2024-03-07 08:48] VITALS: BP 103/56
[2024-03-07] MEDS ORDERED: SERTRALINE HCL 50 MG TABLET PO SCH (09:00)
[2024-03-07] MEDS ORDERED: LISINOPRIL 2.5 MG TABLET PO SCH (09:00)
[2024-03-07] MEDS ORDERED: ZOLOFT50 MG PO (12:33)
[2024-03-07] MEDS ORDERED: INTESTINEX680 M1 PO (12:33)
[2024-03-07] MEDS ORDERED: LEVOFLOXACIN250 MG PO (12:33)
[2024-03-07] MEDS ORDERED: FAMOtidine 20 MG TABLET PO SCH (21:00)
== END 2024-03-07 13:40 | disposition home or self-care (01) | DRG 690 ==
LOC: ER 17:50 → MEDJ 22:06
PROVIDERS: Emergency Medicine; General Practice; Internal Medicine; Internal Medicine Infectious Disease; Preventive Medicine Public Health & General Preventive Medicine; ADMIT Internal Medicine; ATTEND Internal Medicine
PROC: BW21ZZZ Computerized Tomography (CT Scan) of Abdomen and Pelvis (ICD-10-PCS; principal; 2024-03-05)
DX: N39.0 Urinary tract infection, site not specified (principal); E87.0 Hyperosmolality and hypernatremia; B96.20 Unspecified Escherichia coli [E. coli] as the cause of diseases classified elsewhere; E11.65 Type 2 diabetes mellitus with hyperglycemia; E87.5 Hyperkalemia; I10 Essential (primary) hypertension; Z79.4 Long term (current) use of insulin; Z79.84 Long term (current) use of oral hypoglycemic drugs

== ENCOUNTER 2024-04-17 06:54 | Outpatient (CLI) | payer OTHER ==
[~2024-04-17 06:54] MED LIST changes: +LEVOFLOXACIN250 MG PO; +ZOLOFT50 MG PO
[2024-04-17 09:46] LABS: PH,URINE 5.5 (5.0-8.0); URINE APPEARANCE Clear; URINE BILIRRUBIN Negative (NEGATIVE); URINE BLOOD Negative; URINE COLOR Yellow; URINE KETONE Trace (NEGATIVE); URINE LEUKOCYTE Trace; URINE NITRATE Negative; URINE PROTEIN Negative (NEGATIVE); URINE UROBILINOGEN 0.2 E.U./dl
[2024-04-17 09:53] LABS: URINE BACTERIA 50.1 uL (0.0-1933); URINE EPITHELIAL CELLS 25.9 uL (0.0-38.8); URINE RBC 11.4 uL (0.0-20.8); URINE WBC 47.6 uL (0.0-23.2)
[2024-04-17 10:36] LABS: BILIRUBIN TOTAL 0.47 mg/dL (0.3-1.2); CALCIUM 9.6 mg/dL (8.5-10.1); CHOL HDL RATIO 2.4 (0-5.0); CREATININE SERUM 1.09 mg/dL (0.55-1.02); GFR 48.93; GLOBULINA 3.6 G/DL (2.4-3.5); POTASSIUM 5.86 mEq/L (3.5-5.1); TOTAL PROTEIN 7.6 gm/dL (6.4-8.2)
[2024-04-17 10:52] LABS: URINE CAST 0.29 uL (0.0-1.40); URINE GLUCOSE >=1000 MG/DL (NEGATIVE)
== END 2024-04-17 14:00 | disposition home or self-care (01) ==
LOC: LAB 06:54
PROVIDERS: ATTEND Internal Medicine Endocrinology, Diabetes & Metabolism
DX: E11.65 Type 2 diabetes mellitus with hyperglycemia (principal); E78.5 Hyperlipidemia, unspecified

== ENCOUNTER 2024-06-04 06:51 | Outpatient (CLI) | payer OTHER ==
[2024-06-04 07:46] LABS: HEMATOCRIT 37.9 % (36.0-45.00); HEMOGLOBIN 12.3 g/dL (12.0-15.00); MEAN CELL VOLUME 87.6 fL (80.00-100.00); MEAN CORPUSCULAR HEMOGLOBIN 28.5 pg (27.00-32.0); MEAN CORPUSCULAR HGB CONC 32.5 g/dl (32.0-36.0); PLATELET COUNT 372 K/uL (150-450); RED BLOOD COUNT 4.33 M/uL (4.00-6.00); RED CELL DISTRIBUTION WIDTH 14.4 % (11.5-14.5)
[2024-06-04 08:00] LABS: PH,URINE 5.5 (5.0-8.0); URINE APPEARANCE Clear; URINE BILIRRUBIN Negative (NEGATIVE); URINE BLOOD Small; URINE COLOR Yellow; URINE KETONE Negative (NEGATIVE); URINE LEUKOCYTE Trace; URINE NITRATE Positive; URINE PROTEIN Negative (NEGATIVE); URINE UROBILINOGEN 0.2 E.U./dl
[2024-06-04 08:06] LABS: URINE EPITHELIAL CELLS 11.5 uL (0.0-38.8); URINE RBC 12.6 uL (0.0-20.8); URINE WBC 142.9 uL (0.0-23.2)
[2024-06-04 08:12] LABS: URINE BACTERIA > 9821.5 uL (0.0-1933); URINE CAST 0.14 uL (0.0-1.40); URINE GLUCOSE >=1000 MG/DL (NEGATIVE)
[2024-06-04 08:38] LABS: ALBUMIN 3.7 gm/dL (3.4-5.0); ALKALINE PHOSPHATASE 70 U/L (50-136); ALT/SGPT 15 U/L (12-78); ANION GAP 11 (10.0-20.0); AST/SGOT 12 U/L (15-37); BILIRUBIN TOTAL 0.23 mg/dL (0.3-1.2); BLOOD UREA NITROGEN 18 mg/dL (7-18); BUN CREA RATIO 19 (7.0-25.0); CALCIUM 9.3 mg/dL (8.5-10.1); CARBON DIOXIDE 27 mEq/L (21-32); CHLORIDE 110 mmol/L (98-107); CHOL HDL RATIO 2.2 (0-5.0); CHOLESTEROL 126 mg/dL (0-200); CREATININE SERUM 0.95 mg/dL (0.55-1.02); FREE TRIODOTIRONINE 2.36 pg/ml (2.18-3.98); GFR 57.35; GLOBULINA 3.5 G/DL (2.4-3.5); GLUCOSE FASTING 156 mg/dL (65-100); HDL 58 mg/dl (40-60); LDL 52 mg/dl (0-130); OSMOLALITY SERUM 290 MOSM/KG (275-295); SODIUM 143 mmol/L (136-145); T4 TOTAL 7.83 UG/DL (4.8-13.9); TOTAL PROTEIN 7.2 gm/dL (6.4-8.2); TRIGLYCERIDES 80 mg/dL (0-150); VLDL 16 (0-39)
[2024-06-04 08:42] LABS: C-REACTIVE PROTEIN < 0.29 MG/DL (0.00-0.29)
== END 2024-06-04 06:56 | disposition home or self-care (01) ==
LOC: LAB 06:51
PROVIDERS: ATTEND Internal Medicine
DX: E78.9 Disorder of lipoprotein metabolism, unspecified (principal); E11.9 Type 2 diabetes mellitus without complications; I10 Essential (primary) hypertension; I25.10 Atherosclerotic heart disease of native coronary artery without angina pectoris; K57.90 Diverticulosis of intestine, part unspecified, without perforation or abscess without bleeding; E03.9 Hypothyroidism, unspecified; N39.0 Urinary tract infection, site not specified

== ENCOUNTER 2024-09-06 08:53 | Outpatient (CLI) | payer OTHER ==
[2024-09-06 09:31] LABS: URINE APPEARANCE Clear; URINE BILIRRUBIN Negative (NEGATIVE); URINE BLOOD Trace; URINE COLOR Yellow; URINE KETONE Negative (NEGATIVE); URINE LEUKOCYTE Small; URINE NITRATE Positive; URINE PROTEIN Negative (NEGATIVE); URINE UROBILINOGEN 0.2 E.U./dl
[2024-09-06 09:33] LABS: BASO % 1.2 % (0.1-1.2); EOS # 0.50 (0.04-0.54); EOS % 4.9 % (0.7-7.0); LYMPH # 2.95 (1.18-3.74); LYMPH % 28.7 % (19.3-53.1); MEAN PLATELET VOLUME 9.00 fl (9.4-12.4); MONO # 0.90 (0.24-0.82); MONO % 8.7 % (4.7-12.5); NEUT # 5.79 (1.56-6.13); NEUT % 56.2 % (34.0-71.1); RED CELL DISTRIBUTION WIDTH 14.6 % (11.6-14.4)
[2024-09-06 09:36] LABS: URINE EPITHELIAL CELLS 8.9 uL (0.0-38.8); URINE RBC 14.9 uL (0.0-20.8); URINE WBC 249.9 uL (0.0-23.2)
[2024-09-06 09:58] LABS: URINE BACTERIA > 9821.5 uL (0.0-1933); URINE CAST 0.00 uL (0.0-1.40); URINE GLUCOSE >=1000 MG/DL (NEGATIVE)
[2024-09-06 11:25] LABS: ALT/SGPT 19 U/L (12-78); AST/SGOT 15 U/L (15-37); BILIRUBIN TOTAL 0.48 mg/dL (0.3-1.2); BUN CREA RATIO 10 (7.0-25.0); CHOL HDL RATIO 2.3 (0-5.0); CREATININE SERUM 1.01 mg/dL (0.55-1.02); FREE TRIODOTIRONINE 2.12 pg/ml (2.18-3.98); GFR 53.29; GLOBULINA 3.2 G/DL (2.4-3.5); GLUCOSE FASTING 134 mg/dL (65-100); HDL 62 mg/dl (40-60); LDL 52 mg/dl (0-130); OSMOLALITY SERUM 293 MOSM/KG (275-295); T4 TOTAL 7.96 UG/DL (4.8-13.9); TSH 2.110 uIU/mL (0.358-3.74); VLDL 25 (0-39)
== END 2024-09-06 09:02 | disposition home or self-care (01) ==
LOC: LAB 08:53
PROVIDERS: ATTEND Internal Medicine
DX: E03.9 Hypothyroidism, unspecified (principal); N39.0 Urinary tract infection, site not specified; N18.2 Chronic kidney disease, stage 2 (mild); K57.20 Diverticulitis of large intestine with perforation and abscess without bleeding; I25.10 Atherosclerotic heart disease of native coronary artery without angina pectoris; I10 Essential (primary) hypertension; E11.9 Type 2 diabetes mellitus without complications; E78.9 Disorder of lipoprotein metabolism, unspecified

== ENCOUNTER 2024-12-03 08:27 | Outpatient (CLI) | payer OTHER | END 2024-12-03 08:30 | disposition home or self-care (01) | LOC: MRI 08:27 | PROVIDERS: ATTEND Internal Medicine | DX: S49.91XA Unspecified injury of right shoulder and upper arm, initial encounter (principal) | CPT/HCPCS: 73221 ==

== ENCOUNTER 2024-12-14 06:53 | Outpatient (CLI) | payer OTHER | END 2024-12-14 06:58 | disposition home or self-care (01) | LOC: LAB 06:53 | PROVIDERS: ATTEND Internal Medicine | DX: N39.0 Urinary tract infection, site not specified (principal) ==